=== PATIENT | male | born 1995 | race American Indian/Alaskan Native ===

== ENCOUNTER 2018-05-09 18:16 | Emergency (ER) | payer OTHER ==
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
--- NOTE | 2018-05-09 20:11 | Cat Scan Report ---
PROCEDURE: CT CERVICAL SPINE WO CON TECHNIQUE: Computerized tomography of the cervical spine was performed from the skull base to T1 wit hout contrast material. HISTORY: pain, tubbs, face pain COMPARISONS: None . FINDINGS: Bony alignment is normal. The vertebral heights and disc spaces are maintained. There is no evidence of bony canal or foraminal stenosis. Visualization of detail of the contents of the cervical canal is limited by artifact. There is no evidence of fracture or subluxation. The paraspinous soft tissues are unremarkable. IMPRESSION: 1. Unremarkable study. However, visualization of detail of the contents of the cervical canal is limited by artifact. This document is electronically signed by Maty Ness MD., May 09 2018 08:09:13 PM ET
--- NOTE | 2018-05-09 20:17 | Cat Scan Report ---
PROCEDURE: CT FACIAL BONES WO CON TECHNIQUE: Computerized axial tomography of the orbits was performed without contrast material. Auto mated exposure control, adjustment of mA and/or kV according to patient size, or iterative reconstruc tion dose optimization techniques were utilized. HISTORY: pain, tubbs, face pain COMPARISONS: CT head also performed today FINDINGS: There is no evidence of fracture. There is evidence of dental caries and periodontal disease involving a right mandibular anterior mola r tooth. There is increased density in the adjacent anterior body of the mandible on the right consis tent with osteitis. Osteomyelitis cannot be excluded. The adjacent soft tissues are unremarkable. The paranasal sinuses are notable for mild to moderate bilateral ethmoid sinus and mild left frontal sinus mucosal thickening without air-fluid levels. Nasal septum is midline. The orbital contents are unremarkable in appearance. IMPRESSION: 1. Evidence of dental caries and periodontal disease involving a right mandibular anterior molar toot h with associated changes of osteitis in the body of the mandible on the right. Osteomyelitis of the mandible cannot be excluded. 2. No evidence of fracture or subluxation. This document is electronically signed by Maty Ness MD., May 09 2018 08:15:16 PM ET
--- NOTE | 2018-05-09 20:20 | Cat Scan Report ---
PROCEDURE: CT HEAD/BRAIN WO CON TECHNIQUE: Computerized tomography of the head was performed without contrast material. CT DOSE LENGTH PRODUCT: 920.48 mGycm HISTORY: pain, tubbs, face pain COMPARISONS: CT face also performed today . FINDINGS: There is no evidence of an acute intracranial process, intracranial hemorrhage or mass effect. The ventricles are normal size. The visualized portions of the orbits, paranasal and mastoid sinuses are notable for [id number] bilateral ethmoid and mild left frontal sinus mucosal thickening without air-fluid levels. The bony structures of the cranium are unremarkable. IMPRESSION: 1. No evidence of an acute intracranial process, intracranial hemorrhage or mass effect. This document is electronically signed by Maty Ness MD., May 09 2018 08:18:19 PM ET
[2018-05-09 20:56] VITALS: BP 136/74
[2018-05-09 21:12] LABS: Hematocrit 41.8 % (35.5-45.6); Hemoglobin 14.2 gm/dl (11.8-15.2); Mean Corpuscular HGB Conc 34 % (32-34); Mean Corpuscular Volume 90 fl (84-94); Platelet Count 237 K/mm3 (140-440); Red Blood Count 4.66 M/mm3 (3.65-5.03); Red Cell Distribution Width 13.8 % (13.2-15.2)
[2018-05-09 21:31] LABS: Alanine Aminotransferase 12 units/L (7-56); Albumin 4.8 g/dL (3.9-5); BUN/Creatinine Ratio 11; Blood Urea Nitrogen 8 mg/dL (9-20); Calcium 9.5 mg/dL (8.4-10.2); Hemolysis Index 11
--- NOTE | 2018-05-09 22:43 | Cat Scan Report ---
PROCEDURE: CT FACIAL BONES W CON TECHNIQUE: Computerized tomography of the face was performed following the IV injection of iodinated nonionic contrast. Automated exposure control, adjustment of mA and/or kV according to patient size, or iterative reconstruction dose optimization techniques were utilized. HISTORY: jaw pain. r/o osteo COMPARISONS: None FINDINGS: There are no areas of abnormal enhancement in the facial soft tissues and no evidence of facial mass. There is no evidence of abscess formation. Again noted is the osteitis involving the body of the mandible on the right likely secondary to denta l caries and periodontal disease involving a right anterior mandibular molar tooth. There is no evide nce of periosteal change. The paranasal sinuses are again notable for [id number] bilateral ethmoid and mild left frontal sinus mucosal thickening without air-fluid levels. The orbital contents are unremarkable. The visualized portion of the brain is unremarkable. IMPRESSION: 1. Repeat demonstration of osteitis involving the body of the mandible on the right than is most like ly secondary to dental caries and periodontal disease involving a right anterior mandibular molar too th. Osteomyelitis cannot entirely be excluded. There is no evidence of soft tissue inflammatory castillo e or abscess. Referral to dentistry or oral surgery would be helpful for further evaluation and treatment. This document is electronically signed by Maty Ness MD., May 09 2018 10:41:38 PM ET
--- NOTE | 2018-05-09 23:06 | XRay Report ---
PROCEDURE: XR SPINE LUMBOSACRAL 2-3V TECHNIQUE: Lumbar spine radiographs, AP and lateral views. HISTORY: Low back pain back pain COMPARISONS: None . FINDINGS: Alignment: Normal . Vertebral body heights/Disk spaces: Normal . Fracture(s): None . Facets: Normal . Bone mineralization: Normal . IMPRESSION: Normal Examination . This document is electronically signed by Chio Bearden DO., May 09 2018 11:04:06 PM ET
[2018-05-09] MEDS ORDERED: AUGMENTIN 875 MG PO ONE (23:12)
== END 2018-05-09 23:25 | disposition home or self-care (01) ==
LOC: ED 18:16
DX: S00.81XA Abrasion of other part of head, initial encounter (principal); F17.200 Nicotine dependence, unspecified, uncomplicated; Y35.891A Legal intervention involving other specified means, law enforcement official injured, initial encounter; Y93.89 Activity, other specified; Y92.89 Other specified places as the place of occurrence of the external cause; Y99.8 Other external cause status
CPT/HCPCS: 36415; 70450; 70486; 70487; 72100; 72125; 80053; 85027; 99284; Q9967